=== PATIENT | male | born 1955 | race Caucasian/White ===

== ENCOUNTER 2020-01-29 11:32 | Outpatient (CLI) | payer OTHER | END 2020-01-29 11:33 | disposition short-term general hospital (02) | LOC: EMS 11:32 | PROVIDERS: ATTEND Surgery | DX: R55 Syncope and collapse (principal); R41.82 Altered mental status, unspecified; R11.2 Nausea with vomiting, unspecified; R51 Headache; S09.90XA Unspecified injury of head, initial encounter; W19.XXXA Unspecified fall, initial encounter; Y92.009 Unspecified place in unspecified non-institutional (private) residence as the place of occurrence of the external cause | CPT/HCPCS: A0425; A0427 ==